=== PATIENT | female | born 1945 | race Hispanic/Latino ===

== ENCOUNTER → 2022-12-16 | Outpatient (CLI) | payer MEDICARE ==
[~2022-12-16] MED LIST: IOPAMIDOL 370 MG/ML 100 ML INFUS..BTL INJ ONE
[2022-12-16 13:17] LABS: CREATININE, SERUM 1.12 mg/dL (0.57-1.11)
== END ==
LOC: CT 12:04
PROVIDERS: ATTEND Nurse Practitioner Family
DX: R10.0 Acute abdomen (principal)
CPT/HCPCS: 36415; 74177; 82565; 84520; Q9967

== ENCOUNTER 2024-08-31 14:10 | Emergency (ER) | payer MEDICARE ==
[~2024-08-31] VITALS: Ht 162.6 cm; Wt 81.6 kg
[2024-08-31 14:59] LABS: BASOPHILS % 0.5 % (0.0-1.0); EOSINOPHILS % 0.5 % (0.0-6.0); HEMATOCRIT 47.7 % (34.2-44.1); HEMOGLOBIN 14.8 g/dL (12.0-16.0); LYMPHOCYTES # (AUTO) 1.4 (1.0-3.2); LYMPHOCYTES % 15.5 % (18.0-39.1); MEAN CORPUSCULAR HEMOGLOBIN 29.4 pg (28-32); MEAN CORPUSCULAR VOLUME 94.8 fL (81-99); MONOCYTES # (AUTO) 0.7 (0.2-0.8); MONOCYTES % 8.3 % (4.4-11.3); NEUTROPHILS # (AUTO) 6.6 (2.1-6.9); NEUTROPHILS % 74.7 % (38.7-80.0); PLATELET COUNT 164 x10e3/uL (140-360); RED BLOOD COUNT 5.03 x10e6/uL (3.6-5.1); RED CELL DISTRIBUTION WIDTH 13.1 % (11.7-14.4); WHITE BLOOD COUNT 8.83 x10e3/uL (4.8-10.8)
[2024-08-31 15:05] LABS: INR 0.94; PROTHROMBIN TIME 13.2 seconds (11.9-14.5)
[2024-08-31 15:06] LABS: PARTIAL THROMBOPLASTIN TIME 27.9 seconds (23.8-35.5)
[2024-08-31] MEDS: ONDANSETRON HCL INJ 2MG/ML 2ML 2 MG/ML VIAL IV STA (15:08)
[2024-08-31] MEDS: IBUPROFEN 400 MG TAB PO ONE (15:08)
[2024-08-31] MEDS: ACETAMINOPHEN 1000 MG/100 ML IV STA (15:09)
[2024-08-31] MEDS: SODIUM CHLORIDE 0.9% 1000ML 1,000 ML IV SCH (15:09)
[2024-08-31 15:15] LABS: STREPTOCOCCUS GRP A ANTIGEN NEGATIVE (NEGATIVE)
[2024-08-31 15:16] LABS: ALBUMIN 3.7 g/dL (3.5-5.0); ALBUMIN/GLOBULIN RATIO 0.8 (0.8-2.0); BILIRUBIN,TOTAL 0.6 mg/dL (0.2-1.2); CALCIUM 9.6 mg/dL (8.4-10.2); CREATININE, SERUM 1.23 mg/dL (0.57-1.11); TOTAL PROTEIN 8.2 g/dL (6.5-8.1)
[2024-08-31 15:21] LABS: BILIRUBIN,URINE NEGATIVE (NEGATIVE); CLARITY,URINE SL CLOUDY (CLEAR); COLOR,URINE YELLOW (YELLOW); GLUCOSE, URINE NEGATIVE (NEGATIVE); KETONES,URINE TRACE (NEGATIVE); LEUKOCYTE ESTERASE ,URINE TRACE (NEGATIVE); NITRITE,URINE POSITIVE (NEGATIVE); PH,URINE 6 (5 - 7); PROTEIN,URINE DIPSTICK >=300 (NEGATIVE); URINE UROBILINOGEN 0.2 mg/dL (0.2 - 1)
[2024-08-31 15:22] LABS: TROPONIN I 0.144 ng/mL (0-0.300)
[2024-08-31 15:25] LABS: INFLUENZA A AG POSITIVE (NEGATIVE); INFLUENZA B AG NEGATIVE (NEGATIVE)
[2024-08-31 15:26] LABS: CORONAVIRUS COVID-19 AG NEGATIVE (NEGATIVE)
[2024-08-31 15:33] LABS: BACTERIA,URINE MANY /HPF; RBC,URINE 0-5 /HPF (0-5)
[2024-08-31 15:53] VITALS: TEMP 99.8
[2024-08-31 16:33] VITALS: PULSE 81; RESP 18; O2SAT 99
[2024-08-31] MEDS ORDERED: CEFDINIR300 MG PO (16:39)
== END 2024-08-31 16:55 | disposition home or self-care (01) ==
LOC: ER 14:51
DX: R50.9 Fever, unspecified (principal); J10.1 Influenza due to other identified influenza virus with other respiratory manifestations; R05.9 Cough, unspecified; N39.0 Urinary tract infection, site not specified; E86.0 Dehydration; I10 Essential (primary) hypertension; E11.65 Type 2 diabetes mellitus with hyperglycemia; E78.5 Hyperlipidemia, unspecified; Z11.52 Encounter for screening for COVID-19; Z95.810 Presence of automatic (implantable) cardiac defibrillator
CPT/HCPCS: 36415; 71045; 80053; 81001; 82550; 83518; 83605; 83735; 84484; 85025; 85610; 85730; 87040; 87070; 87086; 87186; 87428; 99284; J0131; J2405

== ENCOUNTER 2024-11-05 14:47 | Inpatient (IN) | payer MEDICARE ==
[~2024-11-05] VITALS: Ht 162.6 cm; Wt 81.6 kg
[~2024-11-05 14:47] MED LIST changes: +CEFDINIR300 MG PO; -IOPAMIDOL 370 MG/ML 100 ML INFUS..BTL INJ ONE
[2024-11-05 16:28] LABS: BASOPHILS # (AUTO) 0.1 (0.0-0.1); BASOPHILS % 0.3 % (0.0-1.0); EOSINOPHILS % 0.1 % (0.0-6.0); HEMATOCRIT 44.2 % (34.2-44.1); HEMOGLOBIN 14.2 g/dL (12.0-16.0); LYMPHOCYTES # (AUTO) 1.3 (1.0-3.2); MEAN CORPUSCULAR HEMOGLOBIN 28.8 pg (28-32); MEAN CORPUSCULAR HGB CONC 32.1 g/dL (31-35); MEAN CORPUSCULAR VOLUME 89.7 fL (81-99); MONOCYTES # (AUTO) 0.9 (0.2-0.8); MONOCYTES % 6.2 % (4.4-11.3); NEUTROPHILS # (AUTO) 12.4 (2.1-6.9); NEUTROPHILS % 83.8 % (38.7-80.0); PLATELET COUNT 178 x10e3/uL (140-360); RED BLOOD COUNT 4.93 x10e6/uL (3.6-5.1); RED CELL DISTRIBUTION WIDTH 13.5 % (11.7-14.4); WHITE BLOOD COUNT 14.78 x10e3/uL (4.8-10.8)
[2024-11-05] MEDS: ACETAMINOPHEN 1000 MG/100 ML IV ONE (16:28)
[2024-11-05 16:31] LABS: INR 0.98; PROTHROMBIN TIME 13.6 seconds (11.9-14.5)
[2024-11-05 16:32] LABS: PARTIAL THROMBOPLASTIN TIME 28.1 seconds (23.8-35.5)
[2024-11-05 16:41] LABS: ALBUMIN 3.4 g/dL (3.5-5.0); ALBUMIN/GLOBULIN RATIO 0.8 (0.8-2.0); ANION GAP 18.3 mmol/L (8-16); BILIRUBIN,TOTAL 0.9 mg/dL (0.2-1.2); CREATININE, SERUM 1.41 mg/dL (0.57-1.11); POTASSIUM 4.3 mmol/L (3.5-5.1); TOTAL PROTEIN 7.9 g/dL (6.5-8.1)
[2024-11-05] MEDS ORDERED: IOPAMIDOL 370 MG/ML 100 ML INFUS..BTL INJ ONE (16:56)
[2024-11-05] MEDS ORDERED: ONDANSETRON HCL INJ 2MG/ML 2ML 2 MG/ML VIAL IV PRN ×2 (18:15→21:45)
[2024-11-05] MEDS ORDERED: Morphine 4mg INJECTION 4 MG/ML INJ IV PRN ×2 (18:15→21:45)
[2024-11-05 18:49] LABS: COLOR,URINE YELLOW (YELLOW)
[2024-11-05 18:50] LABS: BILIRUBIN,URINE NEGATIVE (NEGATIVE); CLARITY,URINE CLEAR (CLEAR); GLUCOSE, URINE NEGATIVE (NEGATIVE); KETONES,URINE NEGATIVE (NEGATIVE); LEUKOCYTE ESTERASE ,URINE NEGATIVE (NEGATIVE); NITRITE,URINE POSITIVE (NEGATIVE); PH,URINE 5.5 (5 - 7); PROTEIN,URINE DIPSTICK 2+ (NEGATIVE); URINE UROBILINOGEN 0.2 mg/dL (0.2 - 1)
[2024-11-05 18:52] LABS: BACTERIA,URINE MANY /HPF; EPITHELIAL CELLS,URINE MANY /LPF; RBC,URINE 0-5 /HPF (0-5); WBC,URINE (MAN) 21-50 /HPF (0-5)
[2024-11-05 19:30] VITALS: PULSE 78; RESP 22; TEMP 98.6
[2024-11-05] MEDS: SODIUM CHLORIDE 0.9% 1000ML 1,000 ML IV SCH ×2 (19:42→21:45)
[2024-11-05 21:05] VITALS: BP 124/57; PULSE 79; RESP 19; TEMP 97.9; O2SAT 97
[2024-11-05 21:06] VITALS: BP 124/57; PULSE 79; RESP 19; TEMP 97.9; O2SAT 97
[2024-11-05] MEDS ORDERED: NEURONTIN100 MG PO (21:11)
[2024-11-05] MEDS ORDERED: ROSUVASTATIN CA20 MG PO (21:11)
[2024-11-05] MEDS ORDERED: METFORMIN HCL500 MG PO (21:11)
[2024-11-05] MEDS ORDERED: BENAZEPRIL-HCT1 EAC2 PO (21:12)
[2024-11-05 21:33] VITALS: BP 124/57; PULSE 79; RESP 19; TEMP 97.9; O2SAT 97
[2024-11-05 23:47] VITALS: BP 158/67; PULSE 82; RESP 18; TEMP 97.8; O2SAT 97
[2024-11-06 05:14] LABS: BASOPHILS % 0.4 % (0.0-1.0); EOSINOPHILS # (AUTO) 0.2 (0.0-0.4); EOSINOPHILS % 2.2 % (0.0-6.0); HEMATOCRIT 39.8 % (34.2-44.1); HEMOGLOBIN 12.6 g/dL (12.0-16.0); LYMPHOCYTES # (AUTO) 1.1 (1.0-3.2); LYMPHOCYTES % 10.5 % (18.0-39.1); MEAN CORPUSCULAR HGB CONC 31.7 g/dL (31-35); MEAN CORPUSCULAR VOLUME 91.7 fL (81-99); MONOCYTES # (AUTO) 0.9 (0.2-0.8); MONOCYTES % 8.7 % (4.4-11.3); NEUTROPHILS # (AUTO) 8.3 (2.1-6.9); NEUTROPHILS % 77.9 % (38.7-80.0); PLATELET COUNT 150 x10e3/uL (140-360); RED BLOOD COUNT 4.34 x10e6/uL (3.6-5.1); RED CELL DISTRIBUTION WIDTH 13.6 % (11.7-14.4); WHITE BLOOD COUNT 10.59 x10e3/uL (4.8-10.8)
[2024-11-06 05:19] VITALS: BP 135/71; PULSE 80; RESP 19; TEMP 99.5; O2SAT 100
[2024-11-06 05:57] LABS: ANION GAP 13.5 mmol/L (8-16); CALCIUM 8.6 mg/dL (8.4-10.2); CREATININE, SERUM 1.25 mg/dL (0.57-1.11); POTASSIUM 3.5 mmol/L (3.5-5.1)
[2024-11-06 08:35] VITALS: BP 139/64; PULSE 89; RESP 17; TEMP 98.7; O2SAT 98
[2024-11-06 09:22] VITALS: BP 139/64; PULSE 89; RESP 17; TEMP 98.7; O2SAT 98
[2024-11-06 11:46] VITALS: BP 130/51; PULSE 81; RESP 17; TEMP 98.5; O2SAT 95
[2024-11-06] MEDS: MAGNESIUM HYDROXIDE 30 ML UDC PO ONE (16:59)
[2024-11-06] MEDS ORDERED: DEXTROSE 50% SYRINGE 50 ML IV PRN (18:00)
[2024-11-06 20:43] VITALS: BP 127/76; PULSE 82; RESP 17; TEMP 98.4; O2SAT 98
[2024-11-06] MEDS: INSULIN LISPRO 100 UNIT/1 ML 3ML VIAL SQ SCH (20:58)
[2024-11-06 21:00] VITALS: BP 127/76; PULSE 82; RESP 17; TEMP 98.4; O2SAT 98
[2024-11-07] VITALS (8 sets, daily range): BP systolic 147–169; BP diastolic 70–99; PULSE 64–84; RESP 16–21; TEMP 97.5–98.9; O2SAT 97–100
[2024-11-07] MEDS ORDERED: BENAZEPRIL PO SCH (09:00)
[2024-11-07] MEDS ORDERED: [UNRECOGNIZED DRUG - OTHER] PO SCH (09:00)
[2024-11-07] MEDS ORDERED: HYDROCHLOROTHIAZIDE PO SCH (09:00)
[2024-11-07] MEDS: CRESTOR 10MG PO SCH (09:18)
[2024-11-07] MEDS: HYDROCHLOROTHIAZIDE 25 MG TAB PO SCH (09:47)
[2024-11-07] MEDS: BENAZEPRIL HCL 10 MG TAB PO SCH (09:47)
[2024-11-08 00:48] VITALS: BP 146/71; PULSE 66; RESP 16; TEMP 98.1; O2SAT 100
[2024-11-08 04:42] VITALS: BP 162/70; PULSE 66; RESP 20; TEMP 98.3; O2SAT 99
[2024-11-08 07:06] LABS: BASOPHILS # (AUTO) 0.1 (0.0-0.1); BASOPHILS % 0.6 % (0.0-1.0); EOSINOPHILS # (AUTO) 0.4 (0.0-0.4); EOSINOPHILS % 4.5 % (0.0-6.0); LYMPHOCYTES # (AUTO) 2.5 (1.0-3.2); LYMPHOCYTES % 32.7 % (18.0-39.1); MEAN CORPUSCULAR HGB CONC 31.4 g/dL (31-35); MEAN CORPUSCULAR VOLUME 92.3 fL (81-99); MONOCYTES # (AUTO) 0.6 (0.2-0.8); MONOCYTES % 8.3 % (4.4-11.3); NEUTROPHILS # (AUTO) 4.1 (2.1-6.9); NEUTROPHILS % 53.4 % (38.7-80.0); PLATELET COUNT 151 x10e3/uL (140-360); RED BLOOD COUNT 3.79 x10e6/uL (3.6-5.1); RED CELL DISTRIBUTION WIDTH 13.9 % (11.7-14.4); WHITE BLOOD COUNT 7.73 x10e3/uL (4.8-10.8)
[2024-11-08 07:30] LABS: ANION GAP 13.1 mmol/L (8-16); CALCIUM 8.5 mg/dL (8.4-10.2); CREATININE, SERUM 1.1 mg/dL (0.57-1.11); POTASSIUM 4.1 mmol/L (3.5-5.1)
[2024-11-08 08:05] VITALS: BP 164/66; PULSE 72; RESP 20; TEMP 98.2; O2SAT 98
[2024-11-08 08:10] VITALS: BP 164/66; PULSE 72; RESP 20; TEMP 98.2; O2SAT 98
[2024-11-08 09:39] VITALS: BP 164/66
== END 2024-11-08 12:10 | disposition home or self-care (01) | DRG 394 ==
LOC: ER 16:22 → ERHOLD 18:06 → MED/SURG 19:50
PROVIDERS: ADMIT Family Medicine; ATTEND Family Medicine
DX: I88.0 Nonspecific mesenteric lymphadenitis (principal); N39.0 Urinary tract infection, site not specified; K59.00 Constipation, unspecified; R00.0 Tachycardia, unspecified; G20.A1 Parkinson's disease without dyskinesia, without mention of fluctuations; F02.80 Dementia in other diseases classified elsewhere, unspecified severity, without behavioral disturbance, psychotic disturbance, mood disturbance, and anxiety; I12.9 Hypertensive chronic kidney disease with stage 1 through stage 4 chronic kidney disease, or unspecified chronic kidney disease; E11.22 Type 2 diabetes mellitus with diabetic chronic kidney disease; N18.31 Chronic kidney disease, stage 3a; Z79.84 Long term (current) use of oral hypoglycemic drugs; I49.5 Sick sinus syndrome; Z95.0 Presence of cardiac pacemaker; F32.9 Major depressive disorder, single episode, unspecified; R53.81 Other malaise; Z79.899 Other long term (current) drug therapy
CPT/HCPCS: 36415; 71045; 74177; 80048; 80053; 81001; 82948; 83605; 85025; 85610; 85730; 87040; 87086; 93005; 99252; 99284; J2543; J7030; Q9967